=== PATIENT | female | born 1990 | race Caucasian/White ===

== ENCOUNTER 2016-11-05 07:13 | Inpatient (IN) | payer OTHER ==
[2016-11-05] VITALS (19 sets, daily range): BP systolic 86–110; BP diastolic 42–64; PULSE 62–96; TEMP 97.8–98.2
[~2016-11-05] VITALS: Ht 165.1 cm; Wt 79.5 kg
[2016-11-05 11:20] LABS: HEMOGLOBIN 12.7 g/dl (12.5-16.0); MEAN CELL VOLUME 85 fl (80.0-100.0); MEAN CORPUSCULAR HEMOGLOBIN 28 pg (27.0-31.0); MEAN CORPUSCULAR HGB CONC 33 g/dl (33.0-37.0); MEAN PLATELET VOLUME 12.6 fl (7.4-10.4); PLATELET COUNT 139 K/mm3 (130-400); RED BLOOD COUNT 4.47 M/mm3 (4.10-5.30); REDCELL DISTRIBUTION WIDTH-CV 14.2 % (11.5-14.5)
[2016-11-05 11:22] LABS: ADD PATHOLOGY DIFF REVIEW NO
[2016-11-05 14:20] LABS: BAND 13 % (0-10); EOSINOPHIL 1 % (0-4); METAMYELOCYTE 2 % (0-0); MYELOCYTE 1 % (0-0); NEUTROPHILS 55 % (42.0-75.2); PLATELET ESTIMATE NORMAL (NORMAL); TOTAL CELLS COUNTED 100
[2016-11-05] MEDS ORDERED: MOTRIN 800800 MG/TAB PO (18:45)
[2016-11-05] MEDS ORDERED: PERCOCET 325 MG1 TA2 PO (18:45)
[2016-11-06 07:13] LABS: HEMATOCRIT 34.1 % (37.0-47.0); HEMOGLOBIN 11.2 g/dl (12.5-16.0)
[2016-11-06 07:30] VITALS: BP 102/58; PULSE 70; TEMP 97.9
[2016-11-06 16:00] VITALS: BP 100/59; PULSE 80; TEMP 98.4
[2016-11-06 21:15] VITALS: BP 104/66; PULSE 71; TEMP 98.1
[2016-11-07 08:18] VITALS: BP 94/52; PULSE 73; TEMP 97.3
[2016-11-07 16:30] VITALS: BP 96/63; PULSE 65; TEMP 97.7
[2016-11-07 21:30] VITALS: BP 110/69; PULSE 78; TEMP 98.2
[2016-11-08 07:44] VITALS: BP 117/85; PULSE 76; TEMP 98.2
== END 2016-11-08 15:00 | disposition home or self-care (01) | DRG 766 ==
LOC: LDR 07:13 → OB 10:13 → LDR 12:57 → OB 11-08 15:00
PROVIDERS: Obstetrics & Gynecology
PROC: 10D00Z1 Extraction of Products of Conception, Low, Open Approach (ICD-10-PCS; principal; 2016-11-05)
DX: O34.211 Maternal care for low transverse scar from previous cesarean delivery (principal); N85.8 Other specified noninflammatory disorders of uterus; Z3A.40 40 weeks gestation of pregnancy; O48.0 Post-term pregnancy; Z37.0 Single live birth
CPT/HCPCS: A9284; J0690; J1885; J2270; J2370; J2405; J2550; J2590; J7120

== ENCOUNTER 2018-06-24 07:53 | Inpatient (IN) | payer OTHER ==
[2018-06-24] VITALS (17 sets, daily range): BP systolic 97–108; BP diastolic 55–77; PULSE 59–84; TEMP 97.9–98.1
[~2018-06-24] VITALS: Ht 165.2 cm; Wt 75.9 kg
[~2018-06-24 07:53] MED LIST: MOTRIN 800800 MG/TAB PO; PERCOCET 325 MG1 TA2 PO
[2018-06-24 10:31] LABS: BASO % 0.4 % (0.0-2.0); EOS # 0.1 (0.0-0.7); EOS % 1.4 % (0-4.0); GRAN # 5.8 (1.4-6.5); GRAN % 69.4 % (42.2-75.2); HEMOGLOBIN 12.2 g/dl (12.5-16.0); LYMPH # 1.7 (1.2-3.4); LYMPH % 19.8 % (20.0-51.0); MEAN CELL VOLUME 84 fl (80.0-100.0); MEAN CORPUSCULAR HEMOGLOBIN 28 pg (27.0-31.0); MEAN CORPUSCULAR HGB CONC 34 g/dl (33.0-37.0); MEAN PLATELET VOLUME 11.8 fl (7.4-10.4); MONO # 0.6 (0.1-0.6); PLATELET COUNT 162 K/mm3 (130-400); RED BLOOD COUNT 4.32 M/mm3 (4.10-5.30); REDCELL DISTRIBUTION WIDTH-CV 13.8 % (11.5-14.5)
[2018-06-24 10:32] LABS: HEMATOCRIT 36.4 % (37.0-47.0)
[2018-06-24] MEDS ORDERED: PERCOCET 325 MG1 TA2 PO (11:02)
[2018-06-24] MEDS ORDERED: MOTRIN 800800 MG/TAB PO (11:02)
[2018-06-25 00:12] VITALS: BP 96/62; PULSE 71; TEMP 98.8
[2018-06-25 04:04] VITALS: BP 111/68; PULSE 65; TEMP 97.9
[2018-06-25 07:49] LABS: HEMATOCRIT 36.3 % (37.0-47.0); HEMOGLOBIN 11.7 g/dl (12.5-16.0)
[2018-06-25 08:10] VITALS: BP 89/45; PULSE 70
[2018-06-25 16:30] VITALS: BP 104/64; PULSE 73; TEMP 98.2
[2018-06-25 20:20] VITALS: BP 104/71; PULSE 68; TEMP 99.1
[2018-06-26 07:00] VITALS: BP 104/66; PULSE 68; TEMP 98.8
[2018-06-26 08:38] LABS: BASO % 0.3 % (0.0-2.0); EOS # 0.2 (0.0-0.7); GRAN # 6.2 (1.4-6.5); GRAN % 67.7 % (42.2-75.2); HEMOGLOBIN 11.9 g/dl (12.5-16.0); LYMPH # 2.1 (1.2-3.4); LYMPH % 22.6 % (20.0-51.0); MEAN CELL VOLUME 85 fl (80.0-100.0); MEAN CORPUSCULAR HEMOGLOBIN 28 pg (27.0-31.0); MEAN CORPUSCULAR HGB CONC 33 g/dl (33.0-37.0); MEAN PLATELET VOLUME 11.5 fl (7.4-10.4); MONO # 0.6 (0.1-0.6); MONO % 6.3 % (1.7-9.3); PLATELET COUNT 160 K/mm3 (130-400); RED BLOOD COUNT 4.25 M/mm3 (4.10-5.30); REDCELL DISTRIBUTION WIDTH-CV 14.3 % (11.5-14.5)
[2018-06-26 08:40] LABS: HEMATOCRIT 36.2 % (37.0-47.0)
[2018-06-26 08:46] LABS: INR 0.9 (0.8-3.0); PARTIAL THROMBOPLASTIN TIME 27.5 SECONDS (26.0-37.0); PROTHROMBIN TIME 10.1 SECONDS (9.7-12.8)
== END 2018-06-26 12:15 | disposition home or self-care (01) | DRG 766 ==
LOC: LDR 07:53 → OB 09:45 → LDR 11:38 → OB 06-26 12:15
PROVIDERS: Obstetrics & Gynecology
PROC: 10D00Z1 Extraction of Products of Conception, Low, Open Approach (ICD-10-PCS; principal; 2018-06-24)
DX: O34.211 Maternal care for low transverse scar from previous cesarean delivery (principal); Z3A.39 39 weeks gestation of pregnancy; Z37.0 Single live birth; O62.2 Other uterine inertia; M79.89 Other specified soft tissue disorders
CPT/HCPCS: J0690; J2270; J2370; J2405; J2590; J7120